=== PATIENT | female | born 1985 | race Two or more races ===

== ENCOUNTER → 2017-05-24 | Emergency (ER) | payer OTHER ==
[~2017-05-24] VITALS: Ht 160 cm; Wt 81.6 kg
[~2017-05-24] MED LIST: AIRBORNE EFFER1 EACH PO; CARAFATE1 G PO; IMODIUM A-D2 MG PO; KETO10TA2 PO; LEVSIN/SL0.125 MG SL; MUCINEX D ER 11 EACH PO; OSEL75CA PO; PEPCID40 MG PO; PREVACID30 MG PO; ZOFRAN4 MG PO
== END | disposition home or self-care (01) ==
LOC: ER 17:23
DX: J11.1 Influenza due to unidentified influenza virus with other respiratory manifestations (principal)

== ENCOUNTER 2019-10-01 09:44 | Emergency (ER) | payer OTHER ==
[~2019-10-01] VITALS: Ht 160 cm; Wt 81.6 kg
== END 2019-10-01 20:09 | disposition home or self-care (01) ==
LOC: ER 09:44
DX: R10.13 Epigastric pain (principal)

== ENCOUNTER 2020-09-13 05:15 | Day surgery (SDC) | payer OTHER | END 2020-09-13 14:30 | disposition home or self-care (01) | LOC: CIR.AMB 05:15 | PROVIDERS: ATTEND Obstetrics & Gynecology | DX: Z30.2 Encounter for sterilization (principal); Z20.822 Contact with and (suspected) exposure to COVID-19 ==

== ENCOUNTER 2023-06-14 09:24 | Emergency (ER) | payer OTHER ==
[~2023-06-14] VITALS: Ht 157.5 cm; Wt 64.9 kg
[2023-06-14] MEDS ORDERED: ZYRTEC10 M3 PO (09:59)
[2023-06-14 11:31] LABS: HEMATOCRIT 40.3 % (36.0-45.00); HEMOGLOBIN 13.6 g/dL (12.0-15.00); MEAN CELL VOLUME 85.3 fL (80.00-100.00); MEAN CORPUSCULAR HEMOGLOBIN 28.7 pg (27.00-32.0); MEAN CORPUSCULAR HGB CONC 33.7 g/dl (32.0-36.0); PLATELET COUNT 196 K/uL (150-450); RED BLOOD COUNT 4.73 M/uL (4.00-6.00); RED CELL DISTRIBUTION WIDTH 14.1 % (11.5-14.5)
[2023-06-14 12:36] LABS: ALT/SGPT 27 U/L (12-78); AST/SGOT 17 U/L (15-37); LDH 178 U/L (84-246); PHOSPHOKINASE CREATININE 90 U/L (26-192)
== END 2023-06-14 13:03 | disposition home or self-care (01) ==
LOC: ER 09:26
PROVIDERS: Emergency Medicine
DX: B34.8 Other viral infections of unspecified site (principal); Z20.822 Contact with and (suspected) exposure to COVID-19

== ENCOUNTER 2023-06-15 15:28 | Emergency (ER) | payer OTHER ==
[~2023-06-15] VITALS: Ht 157.5 cm; Wt 87.5 kg
[2023-06-15 17:11] LABS: HEMATOCRIT 39.7 % (36.0-45.00); HEMOGLOBIN 13.4 g/dL (12.0-15.00); MEAN CELL VOLUME 85.1 fL (80.00-100.00); MEAN CORPUSCULAR HEMOGLOBIN 28.6 pg (27.00-32.0); MEAN CORPUSCULAR HGB CONC 33.6 g/dl (32.0-36.0); PLATELET COUNT 164 K/uL (150-450); RED BLOOD COUNT 4.67 M/uL (4.00-6.00); RED CELL DISTRIBUTION WIDTH 14.5 % (11.5-14.5)
== END 2023-06-15 17:29 | disposition home or self-care (01) ==
LOC: ER 15:28
PROVIDERS: General Practice
DX: J11.1 Influenza due to unidentified influenza virus with other respiratory manifestations (principal); Z20.822 Contact with and (suspected) exposure to COVID-19

== ENCOUNTER → 2023-06-15 | Emergency (ER) | payer OTHER ==
[~2023-06-15] MED LIST changes: +ZYRTEC10 M3 PO
== END | disposition home or self-care (01) ==
LOC: ER 15:29
DX: J10.1 Influenza due to other identified influenza virus with other respiratory manifestations (principal); Z20.822 Contact with and (suspected) exposure to COVID-19